=== PATIENT | male | born 2000 | race Caucasian/White ===

== ENCOUNTER 2020-11-12 12:00 | Emergency (ER) | payer OTHER ==
--- NOTE | 2020-11-12 12:19 | ED Physician Documentation ---
History of Present Illness - Stated complaint Stated Complaint: CHEST TIGHTNESS POST VACCINE - Additonal information Additional information: 19-year old male presents the emergency department for evaluation of chest tightness that began shortly after receiving his second COVID-19 vaccination this morning at the [facility]. He states he had a similar reaction with his first vaccine a few weeks ago but this feels different. He denies exertional dyspnea, pleuritic component of chest pain. He has no leg swelling. No nausea or vomiting. No diaphoresis. Pain does radiate to his back. No recent travel, surgeries, history of cancer, unilateral leg swelling. Unremarkable past medical history. No tobacco use. Takes no medications. Patient did consult with [facility] for his chest tightness but was advised to come to the emergency department. Review of Systems Constitutional: denies: Fever, Chills Eyes: reports: Reviewed and negative Nose: reports: Reviewed and negative Throat: reports: Reviewed and negative Cardiac: reports: Chest pain / pressure. denies: Palpitations, Pedal edema, Calf pain, Reviewed and negative, Other Respiratory: denies: Dyspnea, Cough, Hemoptysis GI: denies: Abdominal Pain, Nausea, Vomiting : denies: Dysuria Skin: reports: Reviewed and negative Musculoskeletal: reports: Reviewed and negative Neurologic: reports: Reviewed and negative PD PAST MEDICAL HISTORY - Present Medications Home Medications: Ambulatory Orders Medication Instructions Recorded Confirmed Buspirone HCl 15 mg PO BID 11/12/20 11/12/20 - Allergies Allergies/Adverse Reactions: Allergies Allergy/AdvReac Type Severity Reaction Status Date / Time No Known Drug Allergies Allergy Verified 11/12/20 12:12 PD ED PE NORMAL - General General: Alert and oriented X 3, No acute distress - HEENT HEENT: EOMI, Ears normal, Moist mucous membranes, Pharynx benign - Neck Neck: Supple, no meningeal sign - Cardiac Cardiac: RRR, No murmur, Strong equal pulses - Respiratory Respiratory: No respiratory distress, Clear bilaterally - Abdomen Abdomen: Normal bowel sounds, Soft - Back Back: No CVA TTP, No spinal TTP - Derm Derm: Normal color, Warm and dry, No rash - Extremities Extremities: No deformity - Neuro Neuro: Alert and oriented X 3 Eye Opening: Spontaneous Motor: Obeys Commands Verbal: Oriented GCS Score: 15 Results - Vitals Vitals: Vital Signs - 24 hr 11/12/20 12:05 Temperature 36.7 C Heart Rate 55 L Respiratory 16 Rate Blood Pressure 141/96 H O2 Saturation 99 Oxygen O2 Source Room air - EKG (time done) 1203 Rate: Rate (enter#) (51) Rhythm: NSR [place]: Normal Intervals: Normal PA QRS: Normal Ischemia: ST elevation c/w repol Compare to prior EKG: Old EKG unavailable Computer interpretation: Agree with computer - Labs Labs: Laboratory Tests 11/12/20 11/12/20 11/12/20 12:27 12:27 12:27 WBC 4.1 L RBC 5.16 Hgb 16.0 Hct 43.9 MCV 85.1 MCH 31.0 MCHC 36.4 H RDW 11.9 L Plt Count 265 MPV 9.4 Neut # (Auto) 1.6 Lymph # (Auto) 2.0 [place] # (Auto) 0.4 Eos # (Auto) 0.1 Baso # (Auto) 0.0 Absolute Nucleated RBC 0.00 Nucleated RBC % 0.0 Sodium 139 Potassium 3.9 Chloride 103 Carbon Dioxide 26 Anion Gap 10.0 BUN 18 Creatinine 0.8 Estimated GFR (MDRD) 123 Glucose 100 Calcium 9.9 Troponin I High Sens 2.5 PD MEDICAL DECISION MAKING - ED course Complexity details: reviewed results, considered differential, d/w patient ED course: 19 year old male presents to the ED for evaluation of chest tightness after 2nd COVID 19 vaccination - EKG non-ischemic. early repo. Negative trop - screening cbc and BMP unremarkable - Pt is PERC and well criteria negative - no cough, congestion, fevers; low suspicion for pna - felt more likely to be anxiety related to vaccine that pathological process at this time. Stable for dc home. - Emergent return precautions discussed Departure - Departure Disposition: Home, Self Care Clinical Impression: Chest tightness Condition: Stable Record reviewed to determine appropriate education?: Yes Comments: You were seen for tightness in your chest after receiving the 2nd covid-19 vaccination. Your EKG and labs today are unremarkable. You can expect to develop fevers, body aches and chills for a few days. This is a common occurrence after the second vaccine. It is not a allergic reaction; rather a sign that your body is responding appropriately to the vaccine and helping you develop immunity and antibodies
[2020-11-12 12:31] LABS: BASOPHILS % (AUTO) 0.7 %; EOSINOPHILS # (AUTO) 0.1 10^3/uL (0.0-0.7); EOSINOPHILS % (AUTO) 1.5 %; HCT - HEMATOCRIT 43.9 % (42.0-52.0); LYMPHOCYTES % (AUTO) 49.1 %; MEAN CORPUSCULAR HGB CONC 36.4 g/dL (32.0-36.0); MEAN CORPUSCULAR VOLUME 85.1 fL (80.0-94.0); MEAN PLATELET VOLUME 9.4 fL (7.4-11.4); MONOCYTES # (AUTO) 0.4 10^3/uL (0.0-1.0); MONOCYTES % (AUTO) 9.1 %; NEUTROPHILS # (AUTO) 1.6 10^3/uL (1.5-6.6); NEUTROPHILS % (AUTO) 39.4 %; PLT - PLATELET COUNT 265 10^3/uL (130-450); RED BLOOD COUNT 5.16 10^6/uL (4.70-6.10); RED CELL DISTRIBUTION WIDTH 11.9 % (12.0-15.0); WHITE BLOOD COUNT 4.1 x10^3/uL (4.8-10.8)
[2020-11-12 12:46] LABS: CALCIUM 9.9 mg/dL (8.5-10.3); CREATININE 0.8 mg/dL (0.6-1.2); POTASSIUM 3.9 mmol/L (3.5-5.0)
[2020-11-12 13:14] VITALS: BP 133/82
== END 2020-11-12 13:10 | disposition home or self-care (01) ==
LOC: ED 12:00
DX: R07.89 Other chest pain (principal)
CPT/HCPCS: 36415; 80048; 84484; 85025; 93005; 99282; 99284

== ENCOUNTER 2021-12-16 14:13 | Emergency (ER) | payer OTHER ==
[2021-12-16 14:51] VITALS: BP 151/49
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
[2021-12-16] MEDS ORDERED: IBUPROFEN 600 MG TABLET PO STA (15:42)
[2021-12-16] MEDS ORDERED: ACETAMINOPHEN 325 MG TABLET PO STA (15:42)
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
== END 2021-12-16 17:33 | disposition home or self-care (01) ==
LOC: ED 14:13
DX: S09.90XA Unspecified injury of head, initial encounter (principal); R51.9 Headache, unspecified; S16.1XXA Strain of muscle, fascia and tendon at neck level, initial encounter; V43.52XA Car driver injured in collision with other type car in traffic accident, initial encounter
CPT/HCPCS: 70450; 72125; 99282; 99284; A9270

== ENCOUNTER 2022-02-19 08:31 | Emergency (ER) | payer OTHER ==
[2022-02-19 08:40] VITALS: BP 147/95
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
== END 2022-02-19 11:40 | disposition home or self-care (01) ==
LOC: ED 08:31
DX: H93.11 Tinnitus, right ear (principal)
CPT/HCPCS: 99281; 99283